=== PATIENT | male | born 1930 | race Two or more races ===

== ENCOUNTER 2017-06-12 00:20 | Inpatient (IN) | payer MEDICARE, MEDICAID ==
[~2017-06-12] VITALS: Ht 175.3 cm; Wt 88.5 kg
[2017-06-12 01:01] LABS: EOSINOPHILS # (AUTO) 0.3 /CMM (0.0-0.7); EOSINOPHILS % (AUTO) 2.1 % (0.0-6.0); HEMATOCRIT 38 % (39-51); HEMOGLOBIN 11.4 g/dL (13.5-17.5); LYMPHOCYTES # (AUTO) 4.2 /CMM (0.8-4.8); LYMPHOCYTES % (AUTO) 29.5 % (20.0-44.0); MEAN CORPUSCULAR HEMOGLOBIN 21 PG (26.0-33.0); MEAN CORPUSCULAR HGB CONC 31 g/dl (31.0-36.0); MEAN CORPUSCULAR VOLUME 70 fL (80-96); MONOCYTES # (AUTO) 0.7 /CMM (0.1-1.30); MONOCYTES % (AUTO) 4.7 % (2.0-12.0); NEUTROPHILS # (AUTO) 8.9 /CMM (1.8-8.9); NEUTROPHILS % (AUTO) 63.7 % (43.0-81.0); PLATELET COUNT (AUTO) 369 /CMM (150-450); RDW COEFFICIENT OF VARIATION 14.2 (11.5-15.0); RED BLOOD CELL COUNT(AUTO) 5.39 MIL/uL (4.5-6.0); WHITE BLOOD COUNT (AUTO) 14.1 K/uL (4.3-11.0)
[2017-06-12 01:14] LABS: TROPONIN I < 0.017 ng/mL (0.00-0.056)
[2017-06-12 01:16] LABS: CALCIUM, SERUM 8.7 mg/dL (8.5-10.1); CARBON DIOXIDE 27 mmol/L (21-32); CHLORIDE 110 mmol/L (98-107); CREATININE 1.3 mg/dL (0.6-1.3); GLUCOSE 118 mg/dL (74-106); POTASSIUM 3.9 mmol/L (3.5-5.1); SODIUM SERUM 146 mmol/L (136-145); UREA NITROGEN, BLOOD 35 mg/dL (7-18)
[2017-06-12 01:19] LABS: INR 1.01 (0.87-1.13); PROTHROMBIN TIME 10.8 SECS (9.5-12.7)
[2017-06-12 01:22] LABS: ALANINE AMINOTRANSFERASE 56 U/L (12-78); ALBUMIN 3.7 g/dL (3.4-5.0); ALKALINE PHOSPHATASE 89 U/L (46-116); ASPARTATE AMINOTRANSFERASE 56 U/L (15-37); BILIRUBIN,DIRECT 0.1 mg/dL (0.0-0.2); BILIRUBIN,TOTAL 0.4 mg/dL (0.2-1.0)
[2017-06-12 01:36] LABS: LIPASE 4402 U/L (73-393)
[2017-06-12 01:46] LABS: APPEARANCE,URINE CLEAR (CLEAR); BILIRUBIN,URINE NEGATIVE (NEGATIVE); BLOOD, URINE NEGATIVE Ery/uL (NEGATIVE); COLOR,URINE YELLOW (YELLOW); KETONES,URINE NEGATIVE (NEGATIVE); LEUKOCYTE ESTERASE ,URINE NEGATIVE (NEGATIVE); NITRITE, URINE NEGATIVE (NEGATIVE); PH,URINE 5.5 (5.0-8.0); PROTEIN,URINE 1+ mg/dl (NEGATIVE); UGLUCOSE NEGATIVE (NEGATIVE); UROBILINOGEN,URINE 0.2 EU/dL (0.2)
[2017-06-12 01:55] LABS: BACTERIA,URINE None seen /HPF (None Seen); RBC,URINE 0-2 /HPF (0-2); SQUAMOUS EPITHELIAL CELL,UR Few /HPF (None Seen); WBC,URINE 0-2 /HPF (0-3)
[2017-06-12 01:56] LABS: HYALINE CASTS, URINE Few /LPF (None Seen); MUCUS,URINE Few /LPF (None Seen); URINE AMORPHOUS URATE Few /HPF (None Seen)
[2017-06-12] MEDS ORDERED: CYAN500T4 PO (02:26)
[2017-06-12] MEDS ORDERED: MAGN400O6 PO (02:26)
[2017-06-12] MEDS ORDERED: ACET-868 PO (02:26)
[2017-06-12] MEDS ORDERED: DOCU-25 PO (02:26)
[2017-06-12] MEDS ORDERED: ASPI81TA2 PO (02:26)
[2017-06-12] MEDS ORDERED: ATOR20TA PO (02:26)
[2017-06-12] MEDS ORDERED: DUTA0.5C PO (02:26)
[2017-06-12] MEDS ORDERED: MULT-70 PO (02:26)
[2017-06-12] MEDS ORDERED: TAMS0.4C34 PO (02:26)
[2017-06-12] MEDS ORDERED: QUET25TA PO (02:26)
[2017-06-12] MEDS ORDERED: PRAM0.253 PO (02:26)
[2017-06-12] MEDS ORDERED: MEMA10TA PO (02:26)
[2017-06-12] MEDS ORDERED: BROM3DRO OP (02:26)
[2017-06-12] MEDS ORDERED: DIFL5DRO OP (02:26)
[2017-06-12] MEDS ORDERED: FLUT1BLS IH (02:26)
[2017-06-12 02:43] LABS: EOSINOPHILS % (MANUAL) 2 % (0-4); LYMPHOCYTES % (MANUAL) 26 % (16-48); MONOCYTES % (MANUAL) 7 % (0-11.0); NEUTROPHILS % (MANUAL) 65 (42-76)
[2017-06-12 03:00] VITALS: BP 140/58
[2017-06-12 07:25] LABS: HEMATOCRIT 35 % (39-51); HEMOGLOBIN 10.7 g/dL (13.5-17.5); MEAN CORPUSCULAR HEMOGLOBIN 21 PG (26.0-33.0); MEAN CORPUSCULAR HGB CONC 30 g/dl (31.0-36.0); MEAN CORPUSCULAR VOLUME 70 fL (80-96); PLATELET COUNT (AUTO) 310 /CMM (150-450); RDW COEFFICIENT OF VARIATION 14.3 (11.5-15.0); RED BLOOD CELL COUNT(AUTO) 5.05 MIL/uL (4.5-6.0); WHITE BLOOD COUNT (AUTO) 12.5 K/uL (4.3-11.0)
[2017-06-12 07:38] LABS: ALANINE AMINOTRANSFERASE 83 U/L (12-78); ALBUMIN 3.3 g/dL (3.4-5.0); ALKALINE PHOSPHATASE 82 U/L (46-116); ASPARTATE AMINOTRANSFERASE 56 U/L (15-37); B-TYPE NATRIURETIC PEPTIDE 140 PG/ML (0-125); BILIRUBIN,TOTAL 0.6 mg/dL (0.2-1.0); CALCIUM, SERUM 7.9 mg/dL (8.5-10.1); CARBON DIOXIDE 28 mmol/L (21-32); CHLORIDE 111 mmol/L (98-107); CREATININE 1.1 mg/dL (0.6-1.3); GLUCOSE 124 mg/dL (74-106); MAGNESIUM 1.9 mg/dL (1.8-2.4); PHOSPHORUS 3.3 mg/dL (2.5-4.9); POTASSIUM 4.1 mmol/L (3.5-5.1); SODIUM SERUM 146 mmol/L (136-145); TOTAL PROTEIN, SERUM 6.2 g/dL (6.4-8.2); UREA NITROGEN, BLOOD 30 mg/dL (7-18)
[2017-06-12 08:00] VITALS: BP 136/77
[2017-06-12 08:04] LABS: CHOLESTEROL 149 mg/dL (<200); HDL CHOLESTEROL 52 mg/dL (40-60); LDL 89 mg/dL (0-99); TRIGLYCERIDES 50 mg/dL (30-150); TROPONIN I 0.001 ng/mL (0.00-0.056)
[2017-06-12 08:21] LABS: LIPASE 5857 U/L (73-393)
[2017-06-12 08:43] LABS: BAND % (MANUAL) 1 % (0.0-5.0); EOSINOPHILS % (MANUAL) 1 % (0-4); LYMPHOCYTES % (MANUAL) 17 % (16-48); MONOCYTES % (MANUAL) 6 % (0-11.0); NEUTROPHILS % (MANUAL) 75 (42-76)
[2017-06-12 16:00] VITALS: BP 148/99
[2017-06-12 19:57] VITALS: BP 129/86
[2017-06-13 08:00] VITALS: BP 128/71
[2017-06-13 09:43] LABS: BASOPHILS % (AUTO) 0.1 % (0.0-2.0); EOSINOPHILS # (AUTO) 0.2 /CMM (0.0-0.7); EOSINOPHILS % (AUTO) 1.4 % (0.0-6.0); HEMATOCRIT 36 % (39-51); LYMPHOCYTES # (AUTO) 1.3 /CMM (0.8-4.8); LYMPHOCYTES % (AUTO) 11.8 % (20.0-44.0); MEAN CORPUSCULAR HEMOGLOBIN 21 PG (26.0-33.0); MEAN CORPUSCULAR HGB CONC 31 g/dl (31.0-36.0); MEAN CORPUSCULAR VOLUME 70 fL (80-96); MONOCYTES # (AUTO) 0.7 /CMM (0.1-1.30); MONOCYTES % (AUTO) 6.4 % (2.0-12.0); NEUTROPHILS # (AUTO) 9.1 /CMM (1.8-8.9); NEUTROPHILS % (AUTO) 80.3 % (43.0-81.0); PLATELET COUNT (AUTO) 336 /CMM (150-450); RDW COEFFICIENT OF VARIATION 14.5 (11.5-15.0); RED BLOOD CELL COUNT(AUTO) 5.21 MIL/uL (4.5-6.0); WHITE BLOOD COUNT (AUTO) 11.4 K/uL (4.3-11.0)
[2017-06-13 09:54] LABS: CALCIUM, SERUM 8.8 mg/dL (8.5-10.1); CARBON DIOXIDE 29 mmol/L (21-32); CHLORIDE 110 mmol/L (98-107); CREATININE 1.1 mg/dL (0.6-1.3); GLUCOSE 118 mg/dL (74-106); POTASSIUM 4.7 mmol/L (3.5-5.1); SODIUM SERUM 144 mmol/L (136-145); UREA NITROGEN, BLOOD 14 mg/dL (7-18)
[2017-06-13 10:03] LABS: PROTHROMBIN TIME 10.7 SECS (9.5-12.7)
[2017-06-13 10:07] LABS: THYROID STIMULATING HORMONE 0.775 uIU/mL (0.358-3.74)
[2017-06-13 10:08] LABS: ALANINE AMINOTRANSFERASE 57 U/L (12-78); ALBUMIN 3.7 g/dL (3.4-5.0); ALKALINE PHOSPHATASE 101 U/L (46-116); ASPARTATE AMINOTRANSFERASE 19 U/L (15-37); BILIRUBIN,DIRECT 0.1 mg/dL (0.0-0.2); BILIRUBIN,TOTAL 0.6 mg/dL (0.2-1.0); LIPASE 192 U/L (73-393); MAGNESIUM 1.8 mg/dL (1.8-2.4); TOTAL PROTEIN, SERUM 6.6 g/dL (6.4-8.2)
[2017-06-13 10:45] LABS: EOSINOPHILS % (MANUAL) 5 % (0-4); LYMPHOCYTES % (MANUAL) 6 % (16-48); MONOCYTES % (MANUAL) 5 % (0-11.0); NEUTROPHILS % (MANUAL) 84 (42-76)
[2017-06-13 16:00] VITALS: BP 121/89
[2017-06-13 20:00] VITALS: BP 136/63
[2017-06-14 08:00] VITALS: BP 145/70
[2017-06-14] MEDS ORDERED: FAMO20VI5 IV (16:38)
[2017-06-14] MEDS ORDERED: PIPE3.377 IV (16:38)
[2017-06-14] MEDS ORDERED: LORA2VIA11 IV (16:38)
[2017-06-14] MEDS ORDERED: ONDA4VIA30 IV (16:38)
[2017-06-14] MEDS ORDERED: HALO5VIA12 IM (16:38)
[2017-06-14] MEDS ORDERED: [UNRECOGNIZED DRUG - CODE] IV (16:38)
[2017-06-14] MEDS ORDERED: QUET25TA PO (16:39)
== END 2017-06-14 15:07 | DRG 438 ==
LOC: ER 00:22 → MED 01:53 → TELE 02:45 → MED 09:44
PROVIDERS: ADMIT Internal Medicine; ATTEND Internal Medicine
DX: K85.90 Acute pancreatitis without necrosis or infection, unspecified (principal); I50.31 Acute diastolic (congestive) heart failure; E87.0 Hyperosmolality and hypernatremia; E46 Unspecified protein-calorie malnutrition; E87.2 Acidosis; I13.0 Hypertensive heart and chronic kidney disease with heart failure and stage 1 through stage 4 chronic kidney disease, or unspecified chronic kidney disease; J44.9 Chronic obstructive pulmonary disease, unspecified; F03.90 Unspecified dementia, unspecified severity, without behavioral disturbance, psychotic disturbance, mood disturbance, and anxiety; N18.9 Chronic kidney disease, unspecified; K21.9 Gastro-esophageal reflux disease without esophagitis; D50.9 Iron deficiency anemia, unspecified; I25.10 Atherosclerotic heart disease of native coronary artery without angina pectoris; M81.0 Age-related osteoporosis without current pathological fracture; Z90.49 Acquired absence of other specified parts of digestive tract; R74.0 Nonspecific elevation of levels of transaminase and lactic acid dehydrogenase [LDH]; E78.5 Hyperlipidemia, unspecified; Z68.28 Body mass index [BMI] 28.0-28.9, adult; R00.1 Bradycardia, unspecified; F29 Unspecified psychosis not due to a substance or known physiological condition; F20.9 Schizophrenia, unspecified; Z79.899 Other long term (current) drug therapy
CPT/HCPCS: 36415; 71010-TC; 76700-TC; 80048-TC; 80053-TC; 80061-TC; 80076-TC; 81000-TC; 82962-TC; 83605-TC; 83690-TC; 83735-TC; 83880; 84100-TC; 84443-TC; 84484-TC; 85025-TC; 85610-TC; 85730-TC; 87040-TC; 87081-TC; 93307-TC; A4606; J1631; J2405; J2543; J3490; J7030; J7060; Z7610

== ENCOUNTER 2017-06-14 15:42 | Inpatient (IN) | payer MEDICARE, MEDICAID ==
[~2017-06-14] VITALS: Ht 165.1 cm; Wt 77.1 kg
[~2017-06-14 15:42] MED LIST: ACET-868 PO; ASPI81TA2 PO; ATOR20TA PO; BROM3DRO OP; CYAN500T4 PO; DIFL5DRO OP; DOCU-25 PO; DUTA0.5C PO; FLUT1BLS IH; MAGN400O6 PO; MEMA10TA PO; MULT-70 PO; PRAM0.253 PO; QUET25TA PO; TAMS0.4C34 PO
[2017-06-14 16:30] VITALS: BP 160/88
--- NOTE | 2017-06-14 16:30 | NUR ---
gps ov crm functional analyst: admission admitted this 86 yr old male pt from med/surg floor with dx: gravely disable and psychosis. awake, a/ox2-3 with periods of confusion and disorientation to situation. reality orientation provided prn. oriented to room and surroundings. denies si/hi at this time. pt refused skin photos, but noted harmony upper arm with skin discoloration due to blood draws and iv insertion. no c/o n/v or any discomfort at this time. pt is on 5150 hold. sitter at bedside. will continue to monitor.
[2017-06-14] MEDS ORDERED: PIPE3.377 IV (16:38)
[2017-06-14] MEDS ORDERED: LORA2VIA11 IV (16:38)
[2017-06-14] MEDS ORDERED: HALO5VIA12 IM (16:38)
[2017-06-14] MEDS ORDERED: [UNRECOGNIZED DRUG - CODE] IV (16:38)
[2017-06-14] MEDS ORDERED: FAMO20VI5 IV (16:38)
[2017-06-14] MEDS ORDERED: ONDA4VIA30 IV (16:38)
[2017-06-14] MEDS ORDERED: QUET25TA PO (16:39)
--- NOTE | 2017-06-14 17:00 | NUR ---
gps ov bass mechanism maker: notes son visiting at this time.
--- NOTE | 2017-06-14 17:30 | NUR ---
gps ov water proofer: notes son left at this time.
--- NOTE | 2017-06-14 17:55 | NUR ---
RN-CO: Notified Dr Lee regarding this admission at GPS overflow and gave admitting orders noted and carried out.
--- NOTE | 2017-06-14 19:00 | NUR ---
MS RN OPENING NOTES RECEIVE PT RESTING IN BED, A/OX 2. NO S/S OF DISTRESS OR SOB. SAFETY MEASURES IN PLACE, ON LOW BED TO ENSURE SAFETY. CALL LIGHT WITHIN REACH. WILL CONTINUE TO MONITOR
--- NOTE | 2017-06-14 19:15 | NUR ---
gps ov per diem rn: notes report given to dea (tello) for continuity of care.
[2017-06-14 20:00] VITALS: BP 145/78
--- NOTE | 2017-06-15 06:27 | NUR ---
MS RN CLOSING NOTES PATIENT STILL COMFORTABLY ASLEEP AND EASILY AWAKEN, HEAD OF BED ELEVATED FOR BETTER LUNG EXPANSION AND GOOD CIRCULATION TOLERATING ROOM AIR 02 SAT 98% IV TO RFA 22 PATENT AND INTACT WITH NO S/S OF INFILTRATION NOTED. RESPIRATIONS EVEN AND UNLABORED, NO S/S OF DISTRESS NOTED, PATIENT IN STABLE CONDITION, NO COMPLAINS OF PAIN AT THIS TIME 0/10. NURSING CARE RENDERED, NEEDS ATTENDED AND ANTICIPATED, KEPT CLEAN AND DRY AND COMFORTABLE, GOOD SKIN CARE PROVIDED.FREQUENT VISUAL CHECK DONE FOR SAFETY EVERY 2 HOURS. 1:1 SITTER, NOTED WITH SKIN DISCOLORATION BILATERAL UPPER ARM PT REFUSED SKIN PHOTOS, OFFLOAD AT ALL TIMES. SAFE HAZARD FREE ENVIRONMENT PROVIDED. CALL LIGHT WITHIN EASY TO REACH, ON LOW BED AT ALL TIMES TO ENSURE SAFETY, WILL ENDORSE TO THE NEXT SHIFT CONTINUE PLAN OF CARE.
--- NOTE | 2017-06-15 07:28 | NUR ---
MS RN INITIAL NOTES REPORT RECEIVED AT THE BEDSIDE. PATIENT SITTING UP IN BED. NO SOB OR DISTRESS NOTED AT THIS TIME. PATIENT DENIES PAIN. BED IN A LOW POSITION, CALL LIGHT WITHIN PATIENT REACH, SITTER IS AT THE BEDSIDE. WILL CONTINUE TO MONITOR.
[2017-06-15 08:00] VITALS: BP 160/73
[2017-06-15 15:54] LABS: BASOPHILS % (AUTO) 0.1 % (0.0-2.0); EOSINOPHILS # (AUTO) 0.3 /CMM (0.0-0.7); HEMATOCRIT 36 % (39-51); HEMOGLOBIN 11.1 g/dL (13.5-17.5); LYMPHOCYTES # (AUTO) 1.7 /CMM (0.8-4.8); LYMPHOCYTES % (AUTO) 18.9 % (20.0-44.0); MEAN CORPUSCULAR HEMOGLOBIN 21 PG (26.0-33.0); MEAN CORPUSCULAR HGB CONC 31 g/dl (31.0-36.0); MEAN CORPUSCULAR VOLUME 69 fL (80-96); MONOCYTES # (AUTO) 0.8 /CMM (0.1-1.30); MONOCYTES % (AUTO) 8.2 % (2.0-12.0); NEUTROPHILS # (AUTO) 6.4 /CMM (1.8-8.9); NEUTROPHILS % (AUTO) 69.8 % (43.0-81.0); PLATELET COUNT (AUTO) 265 /CMM (150-450); RDW COEFFICIENT OF VARIATION 14.2 (11.5-15.0); RED BLOOD CELL COUNT(AUTO) 5.25 MIL/uL (4.5-6.0); WHITE BLOOD COUNT (AUTO) 9.2 K/uL (4.3-11.0)
[2017-06-15 16:00] VITALS: BP 140/85
[2017-06-15 16:00] LABS: ALANINE AMINOTRANSFERASE 33 U/L (12-78); ALBUMIN 3.3 g/dL (3.4-5.0); ALKALINE PHOSPHATASE 102 U/L (46-116); ASPARTATE AMINOTRANSFERASE 17 U/L (15-37); BILIRUBIN,DIRECT 0.1 mg/dL (0.0-0.2); BILIRUBIN,TOTAL 0.7 mg/dL (0.2-1.0); CALCIUM, SERUM 8.2 mg/dL (8.5-10.1); CARBON DIOXIDE 26 mmol/L (21-32); CHLORIDE 106 mmol/L (98-107); CREATININE 1.1 mg/dL (0.6-1.3); GLUCOSE 101 mg/dL (74-106); LIPASE 169 U/L (73-393); MAGNESIUM 1.6 mg/dL (1.8-2.4); SODIUM SERUM 140 mmol/L (136-145); TOTAL PROTEIN, SERUM 6.5 g/dL (6.4-8.2); UREA NITROGEN, BLOOD 10 mg/dL (7-18)
[2017-06-15 16:08] LABS: CHOLESTEROL 151 mg/dL (<200); HDL CHOLESTEROL 50 mg/dL (40-60); LDL 86 mg/dL (0-99); THYROID STIMULATING HORMONE 1.481 uIU/mL (0.358-3.74); TRIGLYCERIDES 93 mg/dL (30-150)
--- NOTE | 2017-06-15 16:16 | NUR ---
RN NOTES CALLED DR MARTINEZ AND INFORMED HER OF THE PATIENT'S MAG LEVEL OF 1.6. MD ORDERED 2G MAGNESIUM NOW. WILL CARRY OUT ORDER.
--- NOTE | 2017-06-15 17:49 | NUR ---
RN NOTES HAD TO WASTE MIRAPEX AND SEROQUEL PATIENT IS REFUSING THESE MEDS. KATIE WITNESSED WASTE.
--- NOTE | 2017-06-15 18:23 | NUR ---
RN NOTES PATIENT IS REFUSING ALL ORAL MEDS AT THIS TIME. TRIED TO EXPLAIN THE IMPORTANCE OF THE MEDICATIONS TO THE PATIENT, BUT STILL HE REFUSES. WILL INFORM MD.
--- NOTE | 2017-06-15 18:35 | NUR ---
RN CLOSING NOTES NO SIGNIFICANT CHANGES IN PATIENT CONDITION THROUGHOUT THE SHIFT. NO SOB OR DISTRESS NOTED AT THIS TIME. PATIENT DENIES PAIN. BED IN A LOW POSITION, CALL LIGHT WITHIN PATIENT REACH, SITTER IS AT THE BEDSIDE. WILL ENDORSE FOR VY.
--- NOTE | 2017-06-15 19:29 | NUR ---
RN OPENING NOTES RECEIVE PT RESTING IN BED, A/OX 2. ON 1:1 SITTER, PT NO S/S OF DISTRESS OR SOB. SAFETY MEASURES IN PLACE, IV FLUIDS RUNNING, ON LOW BED TO ENSURE SAFETY. CALL LIGHT WITHIN REACH. WILL CONTINUE TO MONITOR
[2017-06-15 20:00] VITALS: BP 122/68
[2017-06-15 21:49] LABS: EOSINOPHILS % (MANUAL) 1 % (0-4); LYMPHOCYTES % (MANUAL) 18 % (16-48); MONOCYTES % (MANUAL) 10 % (0-11.0); NEUTROPHILS % (MANUAL) 71 (42-76)
--- NOTE | 2017-06-16 05:49 | NUR ---
RN NOTES PT REFUSED AM DRAW BLOOD DESPITE RISKS AND BENEFITS PER PATIENT HE DOESN'T WANT IT NOW, WILL TRY AGAIN LATER
--- NOTE | 2017-06-16 06:33 | NUR ---
MS RN CLOSING NOTES PATIENT ASLEEP AND EASILY AWAKEN,IN STABLE CONDITION, NO PSYCHIATRIC INSTABILITY. NO CHANGE OF CONDITION THROUGHOUT THE SHIFT. SEMI FOWLERS,RESPIRATIONS EVEN AND UNLABORED, APPEARS NOT IN RESPIRATORY DISTRESS.TOLERATING ROOM AIR 02 SAT 98% RFA 22 PATENT AND INTACT WITH NO S/S OF INFILTRATION NOTED. NO COMPLAINS OF PAIN AT THIS TIME. NURSING CARE RENDERED, KEPT CLEAN AND DRY AND COMFORTABLE, NEEDS ATTENDED AND ANTICIPATED,GOOD SKIN CARE PROVIDED. SAFE HAZARD FREE ENVIRONMENT PROVIDED. OFFLOAD AT ALL TIMES. CALL LIGHT WITHIN EASY TO REACH, FREQUENT VISUAL CHECK DONE FOR SAFETY EVERY 2 HOURS.ON LOW BED AT ALL TIMES TO ENSURE SAFETY, WILL ENDORSE TO THE NEXT SHIFT CONTINUE PLAN OF CARE.
--- NOTE | 2017-06-16 07:00 | NUR ---
RN INITIAL NOTES REPORT RECEIVED AT THE BEDSIDE. PATIENT IS RESTING COMFORTABLY IN BED. NO SOB OR DISTRESS NOTED AT THIS TIME. PATIENT DENIES PAIN. BED IN A LOW POSITION, CALL LIGHT WITHIN PATIENT REACH, SITTER IS AT THE BEDSIDE. WILL CONTINUE TO MONITOR.
[2017-06-16 08:00] VITALS: BP 126/91
--- NOTE | 2017-06-16 09:43 | NUR ---
RN NOTES WAS ABLE TO ADMINISTER AM ASPIRIN AND SEROQUEL. PATIENT REFUSED ALL OTHER MEDS.
--- NOTE | 2017-06-16 14:00 | NUR ---
RN NOTES DR MARTINEZ ON FLOOR. STATES IT IS OK TO DC ALL IV FLUIDS AND MEDS.
[2017-06-16 15:43] VITALS: BP 144/66
[2017-06-16 16:00] VITALS: BP 144/66
--- NOTE | 2017-06-16 18:37 | NUR ---
RN CLOSING NOTES NO SIGNIFICANT CHANGES IN PATIENT CONDITION THROUGHOUT THE SHIFT. NO SOB OR DISTRESS NOTED AT THIS TIME. PATIENT DENIES PAIN. PATIENT REFUSED PM MEDICATIONS. BED IN A LOW POSITION, CALL LIGHT WITHIN PATIENT REACH, SITTER IS AT THE BEDSIDE. WILL ENDORSE FOR VY.
[2017-06-16 20:00] VITALS: BP 120/54
--- NOTE | 2017-06-17 06:00 | NUR ---
MS RN NOTES PT REFUSED BLOOD DRAW. EXPLAINED TO PT IMPORTANCE OF BLOOD DRAW IN HIS POC BUT PT STILL REFUSED. LAB WILL COME BACK LATER FOR BLOOD DRAW. WILL CONTINUE TO MONITOR.
--- NOTE | 2017-06-17 06:43 | NUR ---
MS RN NOTES AWAKE & RESPONSIVE. NOT IN ANY DISTRESS. NO SOB NOTED. DENIES ANY PAIN OR DISCOMFORT AT THIS TIME. WITH IV-HL PATENT & INTACT. AM CARE DONE. MONITORED ACCORDINGLY. CALL LIGHT WITHIN REACH. BED IN LOWEST POSITION. SR UP X 3 WITH BED ALARM ON FOR SAFETY. WILL ENDORSE TO NEXT SHIFT.
--- NOTE | 2017-06-17 07:30 | NUR ---
MS BRUCE AM NOTES PATIENT AWAKE, SITTING IN CHAIR, ON 5150 HOLD, EXP 06/17/17, NOTIFIED GPS, SITTER AT BEDSIDE, VERY LOUD, REFUSED BLOOD DRAW EARLIER PER LECTURER IN COMPUTER SCIENCE, ON RA, RESPIRATIONS EVEN AND UNLABORED, RFA 22 IV ACCESS, FLUSHES WELL, SITE CLEAR, NO COMPLAINS OF PAIN AT THIS TIME. CALL LIGHT WITHIN EASY TO REACH, FOR FREQUENT VISUAL CHECK DONE FOR SAFETY EVERY 2 HOURS.ON LOW BED AT ALL TIMES TO ENSURE SAFETY, WILL CONTINUE TO MONITOR.
[2017-06-17 08:00] VITALS: BP 146/64
--- NOTE | 2017-06-17 09:30 | NUR ---
RN NOTES PATIENT WANTS ASA AND INHALER ONLY BUT REFUSE THE REST OF HIS MEDICATIONS.
[2017-06-17 16:00] VITALS: BP 159/68
--- NOTE | 2017-06-17 16:18 | NUR ---
Initial Discharge Plan: Patient is unable to recall where he resides, but according to his face sheet, patient lives at [address] [place] [address]; [phone]. Patient states that he would like to return there. SW called pt's home phone number in an attempt to get a hold of family members but was unsuccessful. Patient states that he would like his youngest son, Jordan, to be aware of what was going on but was unable to remember any contact information. SW could not find any contact information listed on pt's face sheet or hold. SW will follow up and will work to form a safe and proper discharge.
--- NOTE | 2017-06-17 18:28 | NUR ---
MS RN CLOSING NOTES PATIENT AWAKE, SITTING IN CHAIR, CONFUSED, ON 5250 HOLD, EXP 07/01/17, SITTER AT BEDSIDE, VERY LOUD, REFUSED BLOOD DRAW AND MEDICATIONS TODAY, UNCOOPERATIVE, MD AWARE. ON RA, RESPIRATIONS EVEN AND UNLABORED, RFA 22 IV ACCESS, FLUSHES WELL, SITE CLEAR, NO COMPLAINS OF PAIN AT THIS TIME. CALL LIGHT WITHIN EASY TO REACH, FOR FREQUENT VISUAL CHECK DONE FOR SAFETY EVERY 2 HOURS.ON LOW BED AT ALL TIMES TO ENSURE SAFETY, ALL NEEDS MET. NO OTHER SIGNIFICANT CHANGE IN CONDITION. PT SEEN BY DR. FOWLER EARLIER. NO NEW ORDERS.
--- NOTE | 2017-06-17 19:30 | NUR ---
GPS OVERFLOW RN NOTE: PATIENT SITTING UP IN CHAIR, SITTER AT BEDSIDE. NO ACUTE DISTRESS NOTED. BREATHING EVEN AND UNLABORED, NO SOB NOTED. IV TO RFA IN PLACE. PATIENT CALM AND COOPERATIVE AT THIS TIME. WILL CONTINUE TO MONITOR.
--- NOTE | 2017-06-18 03:00 | NUR ---
GPS OVERFLOW RN NOTE: PATIENT SLEEPING IN BED, NO ACUTE DISTRESS NOTED. BREATHING EVEN AND UNLABORED, NO SOB NOTED. SITTER AT BEDSIDE. BED LOCKED AND IN LOWEST POSITION, CALL LIGHT IN REACH. WILL CONTINUE TO MONITOR.
--- NOTE | 2017-06-18 06:03 | NUR ---
GPS OVERFLOW RN NOTE: PATIENT RESTING IN BED, SITTER AT BEDSIDE. NO ACUTE DISTRESS NOTED. BREATHING EVEN AND UNLABORED, NO SOB NOTED. IV TO RFA IN PLACE. PATIENT CALM AND COOPERATIVE, NO AGGRESSIVE EPISODE THROUGHOUT SHIFT. BED LOCKED AND IN LOWEST POSITION, CALL LIGHT IN REACH. WILL ENDORSE TO DAY NURSE TO CONTINUE WITH PLAN OF CARE.
--- NOTE | 2017-06-18 07:30 | NUR ---
MS BRUCE AM NOTES PATIENT AWAKE, SITTING IN CHAIR, ON 5250 HOLD, EXP 07/01/17, APPEARS CALMER TODAY, SITTER AT BEDSIDE, VERY LOUD, REFUSED BLOOD DRAW EARLIER PER ECOLOGY TEACHER, ON RA, RESPIRATIONS EVEN AND UNLABORED, RFA 22 IV ACCESS, FLUSHES WELL, SITE CLEAR, NO COMPLAINS OF PAIN AT THIS TIME. CALL LIGHT WITHIN EASY TO REACH, FOR FREQUENT VISUAL CHECK DONE FOR SAFETY EVERY 2 HOURS.ON LOW BED AT ALL TIMES TO ENSURE SAFETY, WILL CONTINUE TO MONITOR.
[2017-06-18 08:00] VITALS: BP 151/70
--- NOTE | 2017-06-18 09:30 | NUR ---
RN NOTES TOOK ONLY BREO ELLIPTA AND ASA AND REFUSED OTHER MEDICATIONS. MD LYN.
--- NOTE | 2017-06-18 09:50 | NUR ---
MS BARRERA NOTES PATIENT TRANSFERRED TO GPS RM 217. REPORT GIVEN TO RECEIVING STAFF. Addendum: 06/18/17 at 1018 by JAKE GILMORE RN ADDENDUM: RT ARIZA IV ACCESS REMOVE. CATH TIP COMPLETE, NO BLEEDING DRESSING IN PLACE.
--- NOTE | 2017-06-18 12:59 | NUR ---
Patient's contact center director is his youngest son, Jordan. SW was able to find Jordan's contact number: [phone]. LESTER left a voicemail for Jordan with contact information. LESTER was also informed by psychiatrist, Dr. Lee that pt has a Riese hearing coming up because he is not compliant with his medication. LESTER will follow up.
[2017-06-18 16:00] VITALS: BP 121/55
[2017-06-18 20:08] VITALS: BP 153/59
[2017-06-19 08:00] VITALS: BP 147/69
--- NOTE | 2017-06-19 10:02 | NUR ---
LESTER spoke with Shyanne from the [facility], who confirmed that pt was recently discharged from that facility to a board and care. The board and care was [facility], [address] [place] [address], . LESTER also confirmed this was pt's son, Jordan [phone]. Jordan stated that he would like his father to return to the board and care upon discharge. LESTER will follow up.
--- NOTE | 2017-06-19 11:28 | NUR ---
LESTER spoke with pt's son Jordan, , who stated that he did not want his father to return to go to a SNF before going back to his board and care. Jordan stated that he believes returning to the board and care would be more beneficial for his father. Jordan stated that he is okay with giving his father a monthly injectable of medication if it is going to help keep him stable. Jordan stated that it is a pattern of his father's to not take medication because certain meds keep him "running to the bathroom." Jordan stated that the family helps keep the pt on track with meds. Jordan also provided the number for the RN at the [facility] and [facility] so that she becomes aware of the monthly injectable medication: Isaura, .
--- NOTE | 2017-06-19 13:54 | NUR ---
GPS RN NOTE: DR MALCOLM NARVAEZ ORDER HALDOL 0.5 MG PO Q 12 HR START FIRST DOSE NOW, ORDER PLACED AND CARED OUT. WILL CONTINUE MONITORING FOR SAFETY AND BEHAVIOR Q 15 MIN
[2017-06-19 16:00] VITALS: BP 136/60
[2017-06-19 20:19] VITALS: BP 146/63
--- NOTE | 2017-06-20 07:10 | NUR ---
GPS RN NOTE: RECEIVED PT SITTING IN ACTIVITIES ROOM. PT IS A&OX2, GUARDED WITH ANXIOUS MOOD. RESPIRATIONS EVEN AND UNLABORED WITH NO SOB NOTED. DENIES SI/HI AT THIS TIME. DENIES PAIN. WILL CONT TO MONITOR FOR SAFETY AND BEHAVIOR.
[2017-06-20 08:00] VITALS: BP 158/72
[2017-06-20 16:00] VITALS: BP 123/63
--- NOTE | 2017-06-20 17:48 | NUR ---
GPS RN NOTE: PT REFUSED 1700 SCHEDULED MEDICATION MAGNESIUM OXIDE 400MG PO TAB. EDUCATED PT ON RISKS AND BENEFITS X3, BUT PT STILL REFUSED. PER PT, "I DON'T WANT IT." WILL CONT TO MONITOR PT.
--- NOTE | 2017-06-20 18:18 | NUR ---
GPS RN NOTE: PT REFUSED 1800 SCHEDULED MEDICATION PRAMIPEXOLE 0.25MG PO TAB. EDUCATED PT ON RISKS AND BENEFITS, BUT PT STILL REFUSED. PER PT, "I ALREADY SAID NO MORE MEDICINE." WILL CONT TO MONITOR.
--- NOTE | 2017-06-20 19:00 | NUR ---
GPS RN NOTE: NO ACUTE CHANGES DURING SHIFT. ORDERS CARRIED OUT. PENDING CONSENT FROM DR. FOWLER. WILL ENDORSE TO MASONRY SUPERVISOR NURSE FOR VY.
[2017-06-20 20:00] VITALS: BP 128/59
[2017-06-21 08:00] VITALS: BP 152/81
--- NOTE | 2017-06-21 08:53 | NUR ---
GPS/RN PT TOOK HALDOL PO ONLY. REFUSED THE REST OF MEDS SCHEDULED FOR 0900. OFFERED X3.
[2017-06-21 11:12] LABS: BASOPHILS # (AUTO) 0.1 /CMM (0.0-0.2); BASOPHILS % (AUTO) 0.6 % (0.0-2.0); EOSINOPHILS # (AUTO) 0.3 /CMM (0.0-0.7); EOSINOPHILS % (AUTO) 2.8 % (0.0-6.0); HEMATOCRIT 38 % (39-51); HEMOGLOBIN 11.7 g/dL (13.5-17.5); LYMPHOCYTES # (AUTO) 2.1 /CMM (0.8-4.8); LYMPHOCYTES % (AUTO) 20.5 % (20.0-44.0); MEAN CORPUSCULAR HEMOGLOBIN 21 PG (26.0-33.0); MEAN CORPUSCULAR HGB CONC 31 g/dl (31.0-36.0); MEAN CORPUSCULAR VOLUME 69 fL (80-96); MONOCYTES # (AUTO) 0.7 /CMM (0.1-1.30); MONOCYTES % (AUTO) 7.1 % (2.0-12.0); NEUTROPHILS # (AUTO) 7.1 /CMM (1.8-8.9); PLATELET COUNT (AUTO) 333 /CMM (150-450); RDW COEFFICIENT OF VARIATION 14.2 (11.5-15.0); RED BLOOD CELL COUNT(AUTO) 5.53 MIL/uL (4.5-6.0); WHITE BLOOD COUNT (AUTO) 10.3 K/uL (4.3-11.0)
[2017-06-21 11:43] LABS: BAND % (MANUAL) 1 % (0.0-5.0); EOSINOPHILS % (MANUAL) 2 % (0-4); LYMPHOCYTES % (MANUAL) 19 % (16-48); MONOCYTES % (MANUAL) 5 % (0-11.0); NEUTROPHILS % (MANUAL) 73 (42-76)
[2017-06-21 11:58] LABS: ALANINE AMINOTRANSFERASE 30 U/L (12-78); ALBUMIN 3.6 g/dL (3.4-5.0); ALKALINE PHOSPHATASE 89 U/L (46-116); ASPARTATE AMINOTRANSFERASE 19 U/L (15-37); BILIRUBIN,TOTAL 0.4 mg/dL (0.2-1.0); CARBON DIOXIDE 29 mmol/L (21-32); CHLORIDE 103 mmol/L (98-107); CREATININE 1.1 mg/dL (0.6-1.3); GLUCOSE 108 mg/dL (74-106); POTASSIUM 4.4 mmol/L (3.5-5.1); SODIUM SERUM 140 mmol/L (136-145); TOTAL PROTEIN, SERUM 7.1 g/dL (6.4-8.2); UREA NITROGEN, BLOOD 30 mg/dL (7-18)
[2017-06-21 16:00] VITALS: BP 145/73
[2017-06-21 20:00] VITALS: BP 154/67
[2017-06-22 08:00] VITALS: BP 134/67
--- NOTE | 2017-06-22 08:22 | NUR ---
GPS/RN PT AGREED TO TAKE HALDOL PO AND ARTIFICIAL EYE DROPS ONLY . REFUSED THE REST OF MEDICATIONS. OFFERED X3
[2017-06-22 16:22] VITALS: BP 126/67
[2017-06-22 20:00] VITALS: BP 121/59
--- NOTE | 2017-06-23 00:42 | NUR ---
Pt has been anxious, argumentative, & with depressed mood. He needed multiple promptings to take Haldol last night.
[2017-06-23 08:00] VITALS: BP 113/62
--- NOTE | 2017-06-23 08:48 | NUR ---
YUM-LT-[id number]: PT TOOK HALDOL DOSE FOR THE MORNING, BUT REFUSED TO TAKE ALL OTHER MORNING MEDICATIONS, SUCH , BREO ELLIPTA 100-25 MCG INH, ASPIRIN 81 MG, AVODART 0.5 MG, COLACE 100 MG, FLOMAX 0.4 MG, MAG-OXIDE 400 MG, NAMENDA 5 MG, VITAMIN 2, 500 MCG.
[2017-06-23 16:00] VITALS: BP 104/60
[2017-06-23 19:39] VITALS: BP 114/53
[2017-06-24 08:00] VITALS: BP 122/83
[2017-06-24 16:00] VITALS: BP 150/57
[2017-06-24 20:03] VITALS: BP 149/65
[2017-06-25 08:00] VITALS: BP 124/73
--- NOTE | 2017-06-25 10:32 | NUR ---
PIZZA DELIVERY-NOTES PATIENT STRONGLY REFUSED ALL MEDICATIONS AT 0900AM EXCEPT HALDOL 1MG P.O .PATIENT STATED" NO MORE MEDICATIONS FOR ME".EXPLAINED MD ORDERS TO THE PATIENT BUT PATIENTS GETS ANGRY AND ARGUMENTATIVE AT THE PEANUT SHAKER.
[2017-06-25 16:01] VITALS: BP 118/64
--- NOTE | 2017-06-25 17:42 | NUR ---
TELEPHONE CLERK TELEGRAPH OFFICE-NOTES PATIENT REFUSED MAGNESIUM 400MG P.O. STATED" I'M OK I DON'T NEED ANY MEDICATION NOW". EXPLAINED RISK AND BENEFITS BUT PATIENT STAR GETTING ANGRY AT THE HEAD FIELD HOCKEY COACH. OFFERED X3
--- NOTE | 2017-06-25 18:12 | NUR ---
MATERIAL HANDLING TECHNICIAN-NOTES PATIENT REFUSED MIRAPEX 0.25MG P.O. STATED" I'M OK I DON'T NEED ANY MEDICATION NOW". EXPLAINED RISK AND BENEFITS BUT PATIENT STAR GETTING ANGRY AT THE RADIOLOGY EQUIPMENT SERVICER. OFFERED X3
[2017-06-25 19:49] VITALS: BP 141/54
[2017-06-26 08:00] VITALS: BP 102/61
--- NOTE | 2017-06-26 13:15 | NUR ---
Discharge note: Patient will be discharged to a [facility], [facility], [address] [place] [address], via private transportation arranged by the [facility]. Isaura, the school administrator of the [facility], will personally excelsior picker and transport patient, . Patients son, Jordan [phone], has been notified and is in agreement with the discharge plan. Patient will follow up with his skin diver, Dr. Christopher Ibarra [address] on Saturday06/28/17 at 1pm. Isaura from the [facility] and [facility] stated that they have not found a psychiatrist for the patient yet because he is a new resident. Security Incident Response Engineer called patients son, Jordan, who confirmed that his father currently has no psychiatrist. supervisor cemetery workers provided patient with a referral to [facility] [address] [place] [address] [address], [place] [address] [phone]. Patient is not a smoker and does not have past or current alcohol or drug use.
[2017-06-26 16:00] VITALS: BP 135/61
--- NOTE | 2017-06-26 16:40 | NUR ---
TELEHEALTH NURSE EDUCATOR NOTE :PATIENT ALERT ,VERBALLY RESPONSIVE ,DENIES SI/HI/AVH ,NO C/O PAIN ,VS STABLE SEEN BY MALCOLM AND LEE ANN VAUGHN LEAD ASSISTANT MANAGER WITH DISCHARGE ORDERS TO BOARD AND CARE .ALL DISCHARGE INSTRUCTION GIVEN TO PATIENT AND STAFF FROM BOARD AND CARE ,PRESCRIPTION ALL BELONGINGS GIVEN TO PATIENT .PATIENT PICKED UP BY TRADING FLOOR OPERATOR FROM FACILITY .
== END 2017-06-26 17:10 | disposition home or self-care (01) | DRG 885 ==
LOC: MEDSG2 15:47 → GPSOV2 15:55 → GPS 06-18 09:49
PROVIDERS: ADMIT Psychiatry & Neurology Psychosomatic Medicine; ATTEND Internal Medicine
DX: F29 Unspecified psychosis not due to a substance or known physiological condition (principal); I11.0 Hypertensive heart disease with heart failure; F03.90 Unspecified dementia, unspecified severity, without behavioral disturbance, psychotic disturbance, mood disturbance, and anxiety; K85.90 Acute pancreatitis without necrosis or infection, unspecified; I50.30 Unspecified diastolic (congestive) heart failure; E44.1 Mild protein-calorie malnutrition; D50.9 Iron deficiency anemia, unspecified; E78.5 Hyperlipidemia, unspecified; I25.10 Atherosclerotic heart disease of native coronary artery without angina pectoris; J44.9 Chronic obstructive pulmonary disease, unspecified; K21.9 Gastro-esophageal reflux disease without esophagitis; R74.0 Nonspecific elevation of levels of transaminase and lactic acid dehydrogenase [LDH]; Z68.28 Body mass index [BMI] 28.0-28.9, adult; F20.9 Schizophrenia, unspecified; Z73.6 Limitation of activities due to disability; E88.09 Other disorders of plasma-protein metabolism, not elsewhere classified; Z79.899 Other long term (current) drug therapy
CPT/HCPCS: 36415; 80048-TC; 80053-TC; 80061-TC; 80076-TC; 83605-TC; 83690-TC; 83735-TC; 84100-TC; 84443-TC; 85025-TC; 87081-TC; 94799-TC; A4606; J1630; J1631; J2543; J3475; J3480; J3490; J7060; Z7610